=== PATIENT | female | born 1945 ===

== ENCOUNTER 2017-03-16 08:08 | Inpatient (IN) | payer MEDICARE, MEDICAID ==
[2017-03-16 08:08] VITALS: BMI 34.0
--- NOTE | 2017-03-16 08:45 | ED PDOC ---
HPI: Chest Pain Time Seen by Provider: 03/16/17 08:20 Chief Complaint (Nursing): Chest Pain Chief Complaint (Provider): Chest pain History Per: Patient History/Exam Limitations: no limitations Onset/Duration Of Symptoms: Days (5) Current Symptoms Are (Timing): Still Present Severity: Moderate Quality: "Pain" Additional History Per: Patient Additional Complaint(s): The pt is a 71yo female, PMHx of hypothyroidsm, HTN, high cholesterol, presents to ED for evaluation of left sided chest pain for the past 5 days. She reports the pain has been constant, and associated with shortness of breath - pt states she gets short of breath after walking one block. She denies any nausea, vomiting or cough. Pt offers no additional medical complaints. Past Medical History Reviewed: Historical Data, Nursing Documentation, Vital Signs Vital Signs: Last Vital Signs Temp 98.3 F 03/17/17 19:38 Pulse 68 03/17/17 19:38 Resp 20 03/17/17 19:38 BP 121/79 03/17/17 19:38 Pulse Ox 95 03/17/17 19:38 - Medical History PMH: Arthritis, HTN, Hypothyroidism, Rheumatoid Arthritis Denies: Chronic Kidney Disease - Surgical History Surgical History: Endoscopy - Family History Family History: States: Unknown Family Hx - Home Medications Home Medications: Ambulatory Orders Medication Instructions Recorded Carvedilol [Coreg] 12.5 mg PO Q12H 03/16/17 Etanercept [Enbrel] 50 mg SC QWK 03/16/17 Levothyroxine [Synthroid] 50 mcg PO DAILY 03/16/17 Valsartan/Hydrochlorothiazide 1 tab PO DAILY 03/16/17 [Valsartan-Hctz 160-12.5 mg Tab] - Allergies Allergies/Adverse Reactions: Allergies Allergy/AdvReac Type Severity Reaction Status Date / Time No Known Allergies Allergy Verified 03/16/17 08:35 Review of Systems ROS Statement: Except As Marked, All Systems Reviewed And Found Negative Cardiovascular: Positive for: Chest Pain Respiratory: Positive for: Shortness of Breath. Negative for: Cough Gastrointestinal: Negative for: Nausea Physical Exam - Reviewed Nursing Documentation Reviewed: Yes Vital Signs Reviewed: Yes - Physical Exam Appears: Positive for: Well, Non-toxic, No Acute Distress Head Exam: Positive for: ATRAUMATIC, NORMAL INSPECTION, NORMOCEPHALIC Skin: Positive for: Normal Color, Warm, DRY Eye Exam: Positive for: Normal appearance Neck: Positive for: Normal, Supple Cardiovascular/Chest: Positive for: Regular Rate, Rhythm. Negative for: Murmur Respiratory: Positive for: Normal Breath Sounds. Negative for: Respiratory Distress Gastrointestinal/Abdominal: Positive for: Normal Exam, Soft. Negative for: Tenderness Extremity: Positive for: Normal ROM. Negative for: Deformity, Swelling Neurologic/Psych: Positive for: Alert, Oriented - Laboratory Results Result Diagrams: 03/17/17 05:20 03/17/17 05:20 - ECG O2 Sat by Pulse Oximetry: 96 (RA) Pulse Ox Interpretation: Normal Medical Decision Making Medical Decision Making: Time: 30 Impression: Chest pain, ACS Plan: -- EKG -- Bloodwork -- Urinalysis -- CXR -- Reassess Time: 1000 Pt to be admitted under Dr. Mar, covering for Dr. Barth. Dr. Mar requesting cardio consult with Dr. Russo. Scribe Attestation: Documented by Rebeca Garcia acting as a scribe for Adriana Luis MD. Provider Attestation: All medical record entries made by the Scribe were at my direction and personally dictated by me. I have reviewed the chart and agree that the record accurately reflects my personal performance of the history, physical exam, medical decision making, and the department course for this patient. I have also personally directed, reviewed, and agree with the discharge instructions and disposition. Disposition - Clinical Impression Clinical Impression: Chest pain - Patient ED Disposition Is Patient to be Admitted: Yes - Disposition Disposition Time: 09:59 Condition: STABLE - Pt Status Changed To: Hospital Disposition Of: Inpatient - Admit Certification Admit to Inpatient:: After my assessment, the patient will require hospitalization for at least two midnights. This is because of the severity of symptoms shown, intensity of services needed, and/or the medical risk in this patient being treated as an outpatient. - POA Present On Arrival: None
[2017-03-16 08:55] LABS: EOS # 1.1 K/uL (0.0-0.7); HEMATOCRIT 38.5 % (34.0-47.0); LYMPH # 1.1 K/uL (1.0-4.3); MEAN CELL VOLUME 83.6 fl (81.0-99.0); MEAN CORPUSCULAR HEMOGLOBIN 27.8 pg (27.0-31.0); MEAN CORPUSCULAR HGB CONC 33.3 g/dL (33.0-37.0); MEAN PLATELET VOLUME 11.2 fl (7.2-11.7); MONO # 2.7 K/uL (0.0-0.8); NEUT # 5.9 K/uL (1.8-7.0); NRBC % 0.1 % (0.0-0.0); PLATELET COUNT 191 K/uL (130-400); RED CELL DISTRIBUTION WIDTH 14.6 % (11.5-14.5); WHITE BLOOD COUNT 10.7 K/uL (4.8-10.8)
[2017-03-16 09:01] LABS: RBC URINE 4 /hpf (0-3); RENAL EPITHELIAL < 1 /hpf (0-3); TRANSITIONAL EPITHIAL 3 /hpf (0-3); URINE BACTERIA MOD (<OCC); URINE BILIRUBIN NEGATIVE (NEGATIVE); URINE BLOOD NEGATIVE (NEGATIVE); URINE COLOR AMBER (YELLOW); URINE GLUCOSE (UA) NEG (Normal); URINE KETONE NEGATIVE (NEGATIVE); URINE LEUKOCYTE ESTERASE LARGE Leu/uL (Negative); URINE PROTEIN 30 mg/dL (NEGATIVE); URINE UROBILINOGEN 0.2-1.0 mg/dL (0.2-1.0); WBC URINE 9 /hpf (0-5)
[2017-03-16 09:13] LABS: PARTIAL THROMBOPLASTIN TIME 31.5 Seconds (25.6-37.1)
[2017-03-16 09:14] LABS: ALB/GLOB RATIO 1.1 (1.0-2.1); ALKALINE PHOSPHATASE 100 U/L (38-126); ALT/SGPT 36 U/L (9-52); AST/SGOT 47 U/L (14-36); BILIRUBIN,TOTAL 0.8 mg/dl (0.2-1.3); BLOOD UREA NITROGEN 18 mg/dl (7-17); CALCIUM 8.8 mg/dL (8.4-10.2); CARBON DIOXIDE 28 mmol/L (22-30); CHLORIDE 102 mmol/L (98-107); GFR AFRICAN-AMERICAN > 60; GLUCOSE,RANDOM 98 mg/dL (65-105); SODIUM 141 mmol/l (132-148); TOTAL PROTEIN 8.3 G/DL (6.3-8.2)
[2017-03-16 09:41] LABS: THYROID STIMULATING HORMONE 1.06 mIU/ML (0.46-4.68)
[2017-03-16 11:41] LABS: EOSINOPHIL 1 % (0-7); NEUTROPHIL 66 % (42-75); TOTAL CELLS COUNTED 100
--- NOTE | 2017-03-16 13:07 | RAD ---
HISTORY: CP COMPARISON: Comparison made with prior chest radiograph 09/13/2013 FINDINGS: LUNGS: Poor inspiration with low lung volumes, crowded bronchovascular markings and mild bibasilar atelectasis. PLEURA: No significant pleural effusion identified, no pneumothorax apparent. CARDIOVASCULAR: Cardiomegaly. OSSEOUS STRUCTURES: No degenerative changes both shoulder girdles. Mild multilevel degenerative spondylosis. There also appears to be a slight levoscoliosis centered in the lower thoracic region. VISUALIZED UPPER ABDOMEN: Normal. OTHER FINDINGS: None. IMPRESSION: Poor inspiration with low lung volumes, crowded bronchovascular markings and mild bibasilar atelectasis.
--- NOTE | 2017-03-16 13:45 | CP.PCM.HP ---
<Tess Russo - Last Filed: 03/16/17 16:07> History of Present Illness - History of Present Illness History of Present Illness: Patient seen and examined at bedside with attending. 71F p/w 5 days of pressure-like, intermittent, radiating (back) LEFT chest pain that worsens with lying on her LEFT side at night and on deep inspiration and improves with sitting up. She reports subjective fever, suprapubic discomfort, chills, decreased appetite, dry cough. However, she denies dysuria but has been having urinary frequency and states she's had recurrent UTIs. She denies reflux symptoms, hospitalizations/antibiotics within the past 3 months. PMD: Dr Barth PMH: Hypothyroid, HTN, Rheumatoid Arthritis, Gastritis PSH: b/l Blepharoplasty Smoke/Alcohol: denies/denies ALL: NKDA MORTEZA: See Med Rec Present on Admission - Present on Admission Any Indicators Present on Admission: No Review of Systems - Review of Systems All systems: reviewed and no additional remarkable complaints except - Constitutional Constitutional: Chills, Fever (Subjective). absent: Increased Appetite - Respiratory Respiratory: Cough (Dry) - Gastrointestinal Gastrointestinal: Abdominal Pain (LEFT diaphragmatic radiating into back) - Genitourinary Genitourinary: Voiding Freq/Small Amts, Freq UTI. absent: Dysuria Past Patient History - Infectious Disease Hx of Infectious Diseases: None - Past Medical History & Family History Past Medical History?: Yes - Past Social History Smoking Status: Never Smoked - CARDIAC Hx Cardiac Disorders: Yes (HTN,HLD) Hx Hypercholesterolemia: Yes Hx Hypertension: Yes - PULMONARY Hx Respiratory Disorders: No - NEUROLOGICAL Hx Neurological Disorder: No - HEENT Hx HEENT Problems: No - RENAL Hx Chronic Kidney Disease: No - ENDOCRINE/METABOLIC Hx Endocrine Disorders: Yes (HYPOTHRYOID) Hx Hypothyroidism: Yes - HEMATOLOGICAL/ONCOLOGICAL Hx Blood Disorders: No - INTEGUMENTARY Hx Dermatological Problems: No - MUSCULOSKELETAL/RHEUMATOLOGICAL Hx Musculoskeletal Disorders: No - GASTROINTESTINAL Hx Gastrointestinal Disorders: No - GENITOURINARY/GYNECOLOGICAL Hx Genitourinary Disorders: No - PSYCHIATRIC Hx Psychophysiologic Disorder: No - SURGICAL HISTORY Hx Surgeries: Yes Other/Comment: lumbar epidural - ANESTHESIA Hx Anesthesia: Yes Hx Anesthesia Reactions: No Hx Malignant Hyperthermia: No Meds Allergies/Adverse Reactions: Allergies Allergy/AdvReac Type Severity Reaction Status Date / Time No Known Allergies Allergy Verified 03/16/17 08:35 Physical Exam - Constitutional Appears: Well, Non-toxic, No Acute Distress - Head Exam Head Exam: ATRAUMATIC, NORMAL INSPECTION - Eye Exam Eye Exam: EOMI, PERRL - ENT Exam ENT Exam: Mucous Membranes Moist, Normal Exam - Neck Exam Neck exam: Positive for: Normal Inspection. Negative for: Lymphadenopathy - Respiratory Exam Respiratory Exam: Clear to Auscultation Bilateral, NORMAL BREATHING PATTERN. absent: Rales, Wheezes - Cardiovascular Exam Cardiovascular Exam: REGULAR RHYTHM. absent: JVD - GI/Abdominal Exam GI & Abdominal Exam: Normal Bowel Sounds, Soft. absent: Tenderness - Back Exam Back exam: absent: CVA tenderness (L), CVA tenderness (R) - Neurological Exam Neurological exam: Alert, Oriented x3 - Psychiatric Exam Psychiatric exam: Normal Affect, Normal Mood - Skin Skin Exam: Normal Color, Warm Results - Vital Signs Recent Vital Signs: Last Vital Signs Temp 36.6 C 03/16/17 10:13 Pulse 80 03/16/17 12:52 Resp 18 03/16/17 12:52 BP 124/70 03/16/17 11:20 Pulse Ox 99 03/16/17 11:20 - Labs Result Diagrams: 03/16/17 08:41 03/16/17 08:41 Assessment & Plan (1) Chest pain Assessment and Plan: Rule out ACS vs. pneumonia vs. MSK vs. reflux. Initial Troponin negative and EKG w/o acute ST-T changes - Serial Troponins - Cardiology Consult (Dr Russo) - 2-view CXR - Echocardiogram - HH Diet - Protonix Status: Acute (2) UTI (urinary tract infection) Assessment and Plan: Acute on chronic UTI and given distribution of LEFT sided pain cannot rule out the possibility of mild pyelonephritis. One dose of Macrobid in ED, and urinalysis equivocal given presence of many squamous epithelial cells. - Urine Culture - Rocephin 2g, IV, STAT - Rocephin 1g, IV, Daily Status: Acute (3) Rheumatoid arthritis Assessment and Plan: Chronic, due for Enbrel injection, however [facility] does not have on formulary. Status: Acute (4) Hypothyroid Assessment and Plan: Stable. - Resume home medication Status: Acute (5) Hypertension Assessment and Plan: Chronic, stable. - Resume home medication Status: Acute (6) Gastritis Assessment and Plan: Patient not currently on medication and asymptomatic. Given possiblity of contributing to "chest pain". - Protonix 40mg, PO, Daily Status: Acute (7) DVT prophylaxis Assessment and Plan: Lovenox 40mg, SC, HS Status: Acute <Mar,Dixon K - Last Filed: 03/26/17 15:56> Results - Vital Signs Recent Vital Signs: Last Vital Signs Temp 98.3 F 03/17/17 19:38 Pulse 68 03/17/17 19:38 Resp 20 03/17/17 19:38 BP 121/79 03/17/17 19:38 Pulse Ox 96 03/25/17 09:28 - Labs Result Diagrams: 03/17/17 05:20 03/17/17 05:20 Assessment & Plan - Assessment and Plan (Free Text) Assessment: Patient was personally seen and examined by me in rounds with residents. Available labs and diagnostic data reviewed. Case, patient's condition and management plan discussed with residents in rounds. Agree with resident's progress note. Plan: As ordered.
--- NOTE | 2017-03-16 16:24 | RAD ---
HISTORY: Left-sided chest pain COMPARISON: Comparison chest 03/16/2017 TECHNIQUE: Chest PA and lateral FINDINGS: LUNGS: Moderate elevation right hemidiaphragm which could be due to eventration. There is also mild right basilar atelectasis. Minimal left basilar atelectasis. . PLEURA: No significant pleural effusion identified. No pneumothorax apparent. CARDIOVASCULAR: Heart appears mildly enlarged OSSEOUS STRUCTURES: Degenerative changes left shoulder girdle. Mild multilevel degenerative spondylosis of the thoracic spine. There is also minor dextroscoliosis centered in the upper thoracic region. VISUALIZED UPPER ABDOMEN: Normal. OTHER FINDINGS: None. IMPRESSION: Moderate elevation right hemidiaphragm which could be due to eventration. There is also mild right basilar atelectasis. Minimal left basilar atelectasis. .
[2017-03-16] MEDS: Pantoprazole 40 mg EC Tab PO SCH (16:52)
--- NOTE | 2017-03-16 18:35 | CP.PCM.CON ---
History of Present Illness - History of Present Illness History of Present Illness: I was asked to see patient by Dr. Mar. Patient is a 71 year old female with PMH HTN, hypercholesterolemia who presents with chest pain. The patient describes left sided chest pain which is intermittent and associated with exertion. She states symptoms occur with walking and are associated with dyspnea. The patient states symptoms are progressive. Review of Systems - Constitutional Constitutional: absent: As Per HPI, Anorexia, Chills, Daytime Sleepiness, Excessive Sweating, Fatigue, Fever, Frequent Falls, Headache, Increased Appetite , Lethargy, Malaise, Night Sweats, Snoring, Sleep Apnea, Weight Gain, Weight Loss, Weakness, Other - EENT Eyes: absent: As Per HPI, Blind Spots, Blurred Vision, Change in Vision, Decreased Night Vision, Diplopia, Discharge, Dry Eye, Exophthalmos, Floaters, Irritation, Itchy Eyes, Loss of Peripheral Vision, Pain, Photophobia, Requires Corrective Lenses, Sees Flashes, Spots in Vision, Tunnel Vision, Other Visual Disturbances, Loss of Vision, Other Ears: absent: As Per HPI, Decreased Hearing, Ear Discharge, Ear Pain, Tinnitus, Abnormal Hearing, Disequilibrium, Dizziness, Other Nose/Mouth/Throat: absent: As Per HPI, Epistaxis, Nasal Congestion, Nasal Discharge, Nasal Obstruction, Nasal Trauma, Nose Pain, Post Nasal Drip, Sinus Pain, Sinus Pressure, Bleeding Gums, Change in Voice, Dental Pain, Dry Mouth, Dysphagia, Halitosis, Hoarsness, Lip Swelling, Mouth Lesions, Mouth Pain, Odynophagia, Sore Throat, Throat Swelling, Tongue Swelling, Facial Pain, Neck Pain, Neck Mass, Other - Cardiovascular Cardiovascular: Chest Pain at Rest, Chest Pain with Activity, Dyspnea - Respiratory Respiratory: Dyspnea - Gastrointestinal Gastrointestinal: absent: As Per HPI, Abdominal Pain, Belching, Bloating, Change in Bowel Habits, Change in Stool Character, Coffee Ground Emesis, Constipation, Cramping, Diarrhea, Dyspepsia, Dysphagia, Early Satiety, Excessive Flatus, Fecal Incontinence, Heartburn, Hematemesis, Hematochezia, Loose Stools, Melena, Nausea, Odynophagia, Temesmus, Vomiting, Other - Genitourinary Genitourinary: absent: As Per HPI, Change in Urinary Stream, Difficulty Urinating, Dysuria, Flank Pain, Hematuria, Pyuria, Nocturia, Urinary Incontinence, Urinary Frequency, Urinary Hesitance, Urinary Urgency, Voiding Freq/Small Amts, Freq UTI, Hx Renal/Bladder Calculi, Hx /Renal Surgery, Bladder Distension, Other - Musculoskeletal Musculoskeletal: absent: As Per HPI, Abnormal Gait, Arthralgias, Atrophy, Back Pain, Deformity, Joint Swelling, Limited Range of Motion, Loss of Height, Muscle Cramps, Muscle Weakness, Myalgias, Neck Pain, Numbness, Radiating Pain into Limb, Stiffness, Tingling, Other - Integumentary Integumentary: absent: As Per HPI, Acne, Alopecia, Bleeding Lesions, Change in Hair, Change in Nails, Change in Pigmentation, Changing Lesions, Dry Skin, Erythema, Furuncle, Hirsutism, Lesions, New Lesions, Non-Healing Lesions, Photosensitivity, Pruritus, Rash, Skin Pain, Skin Ulcer, Sores, Striae, Swelling , Unusual Bruising, Wounds, Jaundice, Other - Neurological Neurological: absent: As Per HPI, Abnormal Gait, Abnormal Hearing, Abnormal Movements, Abnormal Speech, Behavioral Changes, Burning Sensations, Confusion, Convulsions, Disequilibrium, Dizziness, Numbness, Focal Weakness, Frequent Falls , Headaches, Lack of Coordination, Loss of Vision, Memory Loss, Paresthesias, Radicular Pain, Restless Legs, Sensory Deficit, Syncope, Tingling, Tremor, Vertigo, Weakness, Other Visual Disturbances, Other - Psychiatric Psychiatric: absent: As Per HPI, Abnormal Sleep Pattern, Anhedonia, Anxiety, Auditory Hallucinations, Behavioral Changes, Change in Appetite, Change in Libido, Confusion, Depression, Difficulty Concentrating, Hallucinations, Homicidal Ideation, Hopelessness, Irritability, Memory Loss, Mood Swings, Panic Attacks, Paranoia, Suicidal Ideation, Visual Hallucinations, Tactile Hallucinations, Other - Endocrine Endocrine: absent: As Per HPI, Change in Body Appearance, Change in Libido, Cold Intolorance, Deepening of Voice, Excessive Sweating, Fatigue, Flushing, Heat Intolorance, Increase in Ring/Shoe/Hat Size, Palpitations, Polydipsia, Polyphagia, Polyuria, Other - Hematologic/Lymphatic Hematologic: absent: As Per HPI, Easy Bleeding, Easy Bruising, Lymphadenopathy, Other Past Patient History - Infectious Disease Hx of Infectious Diseases: None - Past Medical History & Family History Past Medical History?: Yes - Past Social History Smoking Status: Never Smoked - CARDIAC Hx Cardiac Disorders: Yes (HTN,HLD) Hx Hypercholesterolemia: Yes Hx Hypertension: Yes - PULMONARY Hx Respiratory Disorders: No - NEUROLOGICAL Hx Neurological Disorder: No - HEENT Hx HEENT Problems: No - RENAL Hx Chronic Kidney Disease: No - ENDOCRINE/METABOLIC Hx Endocrine Disorders: Yes (HYPOTHRYOID) Hx Hypothyroidism: Yes - HEMATOLOGICAL/ONCOLOGICAL Hx Blood Disorders: No - INTEGUMENTARY Hx Dermatological Problems: No - MUSCULOSKELETAL/RHEUMATOLOGICAL Hx Musculoskeletal Disorders: No - GASTROINTESTINAL Hx Gastrointestinal Disorders: No - GENITOURINARY/GYNECOLOGICAL Hx Genitourinary Disorders: No - PSYCHIATRIC Hx Psychophysiologic Disorder: No - SURGICAL HISTORY Hx Surgeries: Yes Other/Comment: lumbar epidural - ANESTHESIA Hx Anesthesia: Yes Hx Anesthesia Reactions: No Hx Malignant Hyperthermia: No Meds Allergies/Adverse Reactions: Allergies Allergy/AdvReac Type Severity Reaction Status Date / Time No Known Allergies Allergy Verified 03/16/17 08:35 - Medications Medications: Current Medications Carvedilol (Coreg) 12.5 mg PO Q12H [facility] Last Admin: 03/16/17 16:49 Dose: 12.5 mg Enoxaparin Sodium (Lovenox) 40 mg SC [facility] PRN Reason: Protocol Home Med (Etanercept [Enbrel]) 50 mg SC QWK [facility] Hydrochlorothiazide (Microzide) 12.5 mg PO DAILY [facility] Ceftriaxone Sodium 1 gm/ (Sodium Chloride) 100 mls @ 100 mls/hr IVPB DAILY [facility] Levothyroxine Sodium (Synthroid) 50 mcg PO DAILY [facility] Pantoprazole Sodium (Protonix Ec Tab) 40 mg PO DAILY [facility] Last Admin: 03/16/17 16:52 Dose: 40 mg Valsartan (Diovan) 160 mg PO DAILY [facility] Physical Exam - Constitutional Appears: Non-toxic - Head Exam Head Exam: NORMAL INSPECTION - Eye Exam Eye Exam: Normal appearance - ENT Exam ENT Exam: Mucous Membranes Moist - Neck Exam Neck exam: Positive for: Full Rom - Respiratory Exam Respiratory Exam: Decreased Breath Sounds - Cardiovascular Exam Cardiovascular Exam: REGULAR RHYTHM - GI/Abdominal Exam GI & Abdominal Exam: Normal Bowel Sounds - Rectal Exam Rectal Exam: Deferred - Extremities Exam Extremities exam: Positive for: pedal edema - Back Exam Back exam: NORMAL INSPECTION - Neurological Exam Neurological exam: Alert, Oriented x3 - Psychiatric Exam Psychiatric exam: Normal Affect - Skin Skin Exam: Normal Color Results - Vital Signs Recent Vital Signs: Last Vital Signs Temp 98.4 F 03/16/17 16:19 Pulse 82 03/16/17 16:52 Resp 18 03/16/17 16:19 BP 108/69 03/16/17 16:49 Pulse Ox 94 L 03/16/17 16:19 - Labs Result Diagrams: 03/16/17 08:41 03/16/17 08:41 Labs: Laboratory Results - last 24 hr 03/16/17 03/16/17 14:00 14:30 ESR 48 H Troponin I < 0.0120 - EKG Data EKG Interpreted by: Myself Assessment & Plan (1) Chest pain Assessment and Plan: patient has risk factors for CAD. The patient will require cardiac enzymes and monitor on telemetry. I reviewed the echocardiogram. The left ventricular function is normal. The patient has risk factors for CAD. will require nuclear stress testing. Status: Acute (2) Hypertension Assessment and Plan: blood pressure will be monitored. Status: Acute
[2017-03-16] MEDS ORDERED: Enoxaparin 40 mg Syringe SC SCH (22:00)
[2017-03-17] MEDS ORDERED: Levothyroxine 50 MCG TAB PO SCH ×2 (06:00→09:00)
[2017-03-17 06:49] LABS: BASO # 0.1 K/uL (0.0-0.2); BASO % 0.7 % (0.0-2.0); EOS # 0.3 K/uL (0.0-0.7); EOS % 4.2 % (0.0-4.0); HEMATOCRIT 38.8 % (34.0-47.0); LYMPH # 2.4 K/uL (1.0-4.3); LYMPH % 31.7 % (20.0-40.0); MEAN CELL VOLUME 83.9 fl (81.0-99.0); MEAN CORPUSCULAR HEMOGLOBIN 27.5 pg (27.0-31.0); MEAN CORPUSCULAR HGB CONC 32.7 g/dL (33.0-37.0); MONO # 1.1 K/uL (0.0-0.8); MONO % 14.1 % (0.0-10.0); NEUT # 3.8 K/uL (1.8-7.0); NEUT % 49.3 % (50.0-75.0); NRBC % 0.2 % (0.0-0.0); RED CELL DISTRIBUTION WIDTH 14.5 % (11.5-14.5); WHITE BLOOD COUNT 7.6 K/uL (4.8-10.8)
[2017-03-17 07:02] LABS: ALKALINE PHOSPHATASE 77 U/L (38-126); ALT/SGPT 45 U/L (9-52); AST/SGOT 42 U/L (14-36); BILIRUBIN,TOTAL 0.5 mg/dl (0.2-1.3); BLOOD UREA NITROGEN 16 mg/dl (7-17); CALCIUM 8.8 mg/dL (8.4-10.2); CARBON DIOXIDE 30 mmol/L (22-30); CHLORIDE 102 mmol/L (98-107); CHOLESTEROL 141 mg/dL (0-199); GFR AFRICAN-AMERICAN > 60; GLUCOSE,RANDOM 94 mg/dL (65-105); POTASSIUM 4.3 MMOL/L (3.6-5.0); SODIUM 142 mmol/l (132-148); TOTAL PROTEIN 8.2 G/DL (6.3-8.2)
[2017-03-17 07:30] LABS: ALB/GLOB RATIO 1.1 (1.0-2.1); THYROID STIMULATING HORMONE 1.62 mIU/ML (0.46-4.68)
--- NOTE | 2017-03-17 08:00 | CP.PCM.DIS ---
<Tess Russo - Last Filed: 03/18/17 04:44> Provider - Provider Date of Admission: 03/16/17 09:59 Attending physician: Dixon Mar MD Time Spent in preparation of Discharge (in minutes): 45 Diagnosis - Discharge Diagnosis (1) Chest pain Status: Acute Comment: d/c after Lexiscan completed and no further evaluation indicated. Troponins negative x3, EKG wo acute ischemic changes. CXR negative for infiltrate. Most c/w MSK. (2) UTI (urinary tract infection) Status: Acute Comment: Urine culture still pending. Will plan to d/c on PO antibiotics with adjustment as necessary based on urine culture. (3) Rheumatoid arthritis Status: Acute Comment: Patient instructed to follow up with primary care doctor for further management. (4) Hypothyroid Status: Acute Comment: TSH WNL, c/w current synthroid dose. (5) Hypertension Status: Acute Comment: Controlled, c/w home medications. (6) Gastritis Status: Acute Comment: Follow up with primary care doctor Hospital Course - Lab Results Lab Results: Most Recent Lab Values WBC 7.6 K/uL (4.8-10.8) 03/17/17 05:20 RBC 4.62 Mil/uL (3.80-5.20) 03/17/17 05:20 Hgb 12.7 g/dL (12.0-16.0) 03/17/17 05:20 Hct 38.8 % (34.0-47.0) 03/17/17 05:20 MCV 83.9 fl (81.0-99.0) 03/17/17 05:20 MCH 27.5 pg (27.0-31.0) 03/17/17 05:20 MCHC 32.7 g/dL (33.0-37.0) L 03/17/17 05:20 RDW 14.5 % (11.5-14.5) 03/17/17 05:20 Plt Count 194 K/uL (130-400) 03/17/17 05:20 MPV 11.0 fl (7.2-11.7) 03/17/17 05:20 Neut % (Auto) 49.3 % (50.0-75.0) L 03/17/17 05:20 Lymph % (Auto) 31.7 % (20.0-40.0) 03/17/17 05:20 [place] % (Auto) 14.1 % (0.0-10.0) H 03/17/17 05:20 Eos % (Auto) 4.2 % (0.0-4.0) H 03/17/17 05:20 Baso % (Auto) 0.7 % (0.0-2.0) 03/17/17 05:20 Neut # 3.8 K/uL (1.8-7.0) 03/17/17 05:20 Lymph # 2.4 K/uL (1.0-4.3) 03/17/17 05:20 [place] # 1.1 K/uL (0.0-0.8) H 03/17/17 05:20 Eos # 0.3 K/uL (0.0-0.7) 03/17/17 05:20 Baso # 0.1 K/uL (0.0-0.2) 03/17/17 05:20 Neutrophils % (Manual) 66 % (42-75) 03/16/17 08:41 Band Neutrophils % 1 % (0-2) 03/16/17 08:41 Lymphocytes % (Manual) 18 % (20-50) L 03/16/17 08:41 Monocytes % (Manual) 14 % (0-10) H 03/16/17 08:41 Eosinophils % (Manual) 1 % (0-7) 03/16/17 08:41 Platelet Estimate Normal (NORMAL) 03/16/17 08:41 Anisocytosis (manual) Slight 03/16/17 08:41 ESR 48 mm/hr (0-30) H 03/16/17 14:00 PT 12.0 Seconds (9.8-13.1) 03/16/17 08:41 INR 1.1 (0.9-1.2) 03/16/17 08:41 APTT 31.5 Seconds (25.6-37.1) 03/16/17 08:41 Sodium 142 mmol/l (132-148) 03/17/17 05:20 Potassium 4.3 MMOL/L (3.6-5.0) 03/17/17 05:20 Chloride 102 mmol/L (98-107) 03/17/17 05:20 Carbon Dioxide 30 mmol/L (22-30) 03/17/17 05:20 Anion Gap 14 (10-20) 03/17/17 05:20 BUN 16 mg/dl (7-17) 03/17/17 05:20 Creatinine 0.7 mg/dL (0.7-1.2) 03/17/17 05:20 Est GFR ( Amer) > 60 03/17/17 05:20 Est GFR (Non-Af Amer) > 60 03/17/17 05:20 Random Glucose 94 mg/dL (65-105) 03/17/17 05:20 Calcium 8.8 mg/dL (8.4-10.2) 03/17/17 05:20 Total Bilirubin 0.5 mg/dl (0.2-1.3) 03/17/17 05:20 AST 42 U/L (14-36) H 03/17/17 05:20 ALT 45 U/L (9-52) 03/17/17 05:20 Alkaline Phosphatase 77 U/L (38-126) 03/17/17 05:20 Troponin I < 0.0120 ng/mL (0.00-0.120) 03/16/17 14:30 Total Protein 8.2 G/DL (6.3-8.2) 03/17/17 05:20 Albumin 4.2 g/dL (3.5-5.0) 03/17/17 05:20 Globulin 4.0 gm/dL (2.2-3.9) H 03/17/17 05:20 Albumin/Globulin Ratio 1.1 (1.0-2.1) 03/17/17 05:20 Triglycerides 130 mg/DL (0-149) 03/17/17 05:20 Cholesterol 141 mg/dL (0-199) 03/17/17 05:20 LDL Cholesterol Direct 92 mg/dL (0-129) 03/17/17 05:20 HDL Cholesterol 28 MG/DL (30-70) L 03/17/17 05:20 TSH 3rd Generation 1.62 mIU/ML (0.46-4.68) 03/17/17 05:20 Urine Color [place] (YELLOW) 03/16/17 08:41 Urine Clarity Slighty-cloudy (Clear) 03/16/17 08:41 Urine pH 5.0 (5.0-8.0) 03/16/17 08:41 Ur Specific [place] 1.021 (1.003-1.030) 03/16/17 08:41 Urine Protein 30 mg/dL (NEGATIVE) 03/16/17 08:41 Urine Glucose (UA) Neg mg/dL (Normal) 03/16/17 08:41 Urine Ketones Negative mg/dL (NEGATIVE) 03/16/17 08:41 Urine Blood Negative (NEGATIVE) 03/16/17 08:41 Urine Nitrate Negative (NEGATIVE) 03/16/17 08:41 Urine Bilirubin Negative (NEGATIVE) 03/16/17 08:41 Urine Urobilinogen 0.2-1.0 mg/dL (0.2-1.0) 03/16/17 08:41 Ur Leukocyte Esterase Large Tali/uL (Negative) 03/16/17 08:41 Urine RBC (Auto) 4 /hpf (0-3) H 03/16/17 08:41 Urine Microscopic WBC 9 /hpf (0-5) H 03/16/17 08:41 Ur Squamous Epith Cells 21 /hpf (0-5) H 03/16/17 08:41 Ur Transition Epith Cell 3 /hpf (0-3) 03/16/17 08:41 Ur Renal Epithelial Cell < 1 /hpf (0-3) 03/16/17 08:41 Urine Bacteria Mod (<OCC) H 03/16/17 08:41 Hyaline Casts 0-2 /hpf (0-2) 03/16/17 08:41 - Hospital Course Hospital Course: Patient seen and examined at the bedside with attending. 71F admitted for rule out ACS, Troponins negative x3, will f/u Lexiscan. UTI, will follow up urine culture. Underlying medical conditions controlled. IF Lexiscan requested by cardiology is without abnormality and no further testing requested patient is stable for discharge to home and close follow up with primary care doctor. Discharge Exam - Head Exam Head Exam: ATRAUMATIC, NORMAL INSPECTION - Eye Exam Eye Exam: EOMI, PERRL - ENT Exam ENT Exam: Mucous Membranes Moist - Respiratory Exam Respiratory Exam: Clear to PA & Lateral, NORMAL BREATHING PATTERN. absent: Rales, Wheezes - Cardiovascular Exam Cardiovascular Exam: REGULAR RHYTHM. absent: JVD - GI/Abdominal Exam GI & Abdominal Exam: Normal Bowel Sounds, Soft. absent: Tenderness - Extremities Exam Extremities exam: full ROM, normal capillary refill, pedal pulses present - Neurological Exam Neurological exam: Alert, Oriented x3 - Psychiatric Exam Psychiatric exam: Normal Affect, Normal Mood - Skin Skin Exam: Normal Color, Warm Discharge Plan - Follow Up Plan Condition: STABLE Disposition: HOME/ ROUTINE Patient education suggested?: Yes Instructions: Chest Pain (DC), Urinary Tract Infection in Women (DC), Chronic Hypertension (DC) Referrals: Diane Barth [Family Provider] - 1 Week <Dixon Mar - Last Filed: 03/26/17 16:00> Provider - Provider Date of Admission: 03/17/17 15:19 Attending physician: Dixon Mar MD Hospital Course - Lab Results Lab Results: Most Recent Lab Values WBC 7.6 K/uL (4.8-10.8) 03/17/17 05:20 RBC 4.62 Mil/uL (3.80-5.20) 03/17/17 05:20 Hgb 12.7 g/dL (12.0-16.0) 03/17/17 05:20 Hct 38.8 % (34.0-47.0) 03/17/17 05:20 MCV 83.9 fl (81.0-99.0) 03/17/17 05:20 MCH 27.5 pg (27.0-31.0) 03/17/17 05:20 MCHC 32.7 g/dL (33.0-37.0) L 03/17/17 05:20 RDW 14.5 % (11.5-14.5) 03/17/17 05:20 Plt Count 194 K/uL (130-400) 03/17/17 05:20 MPV 11.0 fl (7.2-11.7) 03/17/17 05:20 Neut % (Auto) 49.3 % (50.0-75.0) L 03/17/17 05:20 Lymph % (Auto) 31.7 % (20.0-40.0) 03/17/17 05:20 [place] % (Auto) 14.1 % (0.0-10.0) H 03/17/17 05:20 Eos % (Auto) 4.2 % (0.0-4.0) H 03/17/17 05:20 Baso % (Auto) 0.7 % (0.0-2.0) 03/17/17 05:20 Neut # 3.8 K/uL (1.8-7.0) 03/17/17 05:20 Lymph # 2.4 K/uL (1.0-4.3) 03/17/17 05:20 [place] # 1.1 K/uL (0.0-0.8) H 03/17/17 05:20 Eos # 0.3 K/uL (0.0-0.7) 03/17/17 05:20 Baso # 0.1 K/uL (0.0-0.2) 03/17/17 05:20 Neutrophils % (Manual) 66 % (42-75) 03/16/17 08:41 Band Neutrophils % 1 % (0-2) 03/16/17 08:41 Lymphocytes % (Manual) 18 % (20-50) L 03/16/17 08:41 Monocytes % (Manual) 14 % (0-10) H 03/16/17 08:41 Eosinophils % (Manual) 1 % (0-7) 03/16/17 08:41 Platelet Estimate Normal (NORMAL) 03/16/17 08:41 Anisocytosis (manual) Slight 03/16/17 08:41 ESR 48 mm/hr (0-30) H 03/16/17 14:00 PT 12.0 Seconds (9.8-13.1) 03/16/17 08:41 INR 1.1 (0.9-1.2) 03/16/17 08:41 APTT 31.5 Seconds (25.6-37.1) 03/16/17 08:41 Sodium 142 mmol/l (132-148) 03/17/17 05:20 Potassium 4.3 MMOL/L (3.6-5.0) 03/17/17 05:20 Chloride 102 mmol/L (98-107) 03/17/17 05:20 Carbon Dioxide 30 mmol/L (22-30) 03/17/17 05:20 Anion Gap 14 (10-20) 03/17/17 05:20 BUN 16 mg/dl (7-17) 03/17/17 05:20 Creatinine 0.7 mg/dL (0.7-1.2) 03/17/17 05:20 Est GFR ( Amer) > 60 03/17/17 05:20 Est GFR (Non-Af Amer) > 60 03/17/17 05:20 Random Glucose 94 mg/dL (65-105) 03/17/17 05:20 Calcium 8.8 mg/dL (8.4-10.2) 03/17/17 05:20 Total Bilirubin 0.5 mg/dl (0.2-1.3) 03/17/17 05:20 AST 42 U/L (14-36) H 03/17/17 05:20 ALT 45 U/L (9-52) 03/17/17 05:20 Alkaline Phosphatase 77 U/L (38-126) 03/17/17 05:20 Troponin I < 0.0120 ng/mL (0.00-0.120) 03/16/17 14:30 Total Protein 8.2 G/DL (6.3-8.2) 03/17/17 05:20 Albumin 4.2 g/dL (3.5-5.0) 03/17/17 05:20 Globulin 4.0 gm/dL (2.2-3.9) H 03/17/17 05:20 Albumin/Globulin Ratio 1.1 (1.0-2.1) 03/17/17 05:20 Triglycerides 130 mg/DL (0-149) 03/17/17 05:20 Cholesterol 141 mg/dL (0-199) 03/17/17 05:20 LDL Cholesterol Direct 92 mg/dL (0-129) 03/17/17 05:20 HDL Cholesterol 28 MG/DL (30-70) L 03/17/17 05:20 TSH 3rd Generation 1.62 mIU/ML (0.46-4.68) 03/17/17 05:20 Urine Color [place] (YELLOW) 03/16/17 08:41 Urine Clarity Slighty-cloudy (Clear) 03/16/17 08:41 Urine pH 5.0 (5.0-8.0) 03/16/17 08:41 Ur Specific [place] 1.021 (1.003-1.030) 03/16/17 08:41 Urine Protein 30 mg/dL (NEGATIVE) 03/16/17 08:41 Urine Glucose (UA) Neg mg/dL (Normal) 03/16/17 08:41 Urine Ketones Negative mg/dL (NEGATIVE) 03/16/17 08:41 Urine Blood Negative (NEGATIVE) 03/16/17 08:41 Urine Nitrate Negative (NEGATIVE) 03/16/17 08:41 Urine Bilirubin Negative (NEGATIVE) 03/16/17 08:41 Urine Urobilinogen 0.2-1.0 mg/dL (0.2-1.0) 03/16/17 08:41 Ur Leukocyte Esterase Large Tali/uL (Negative) 03/16/17 08:41 Urine RBC (Auto) 4 /hpf (0-3) H 03/16/17 08:41 Urine Microscopic WBC 9 /hpf (0-5) H 03/16/17 08:41 Ur Squamous Epith Cells 21 /hpf (0-5) H 03/16/17 08:41 Ur Transition Epith Cell 3 /hpf (0-3) 03/16/17 08:41 Ur Renal Epithelial Cell < 1 /hpf (0-3) 03/16/17 08:41 Urine Bacteria Mod (<OCC) H 03/16/17 08:41 Hyaline Casts 0-2 /hpf (0-2) 03/16/17 08:41
[2017-03-17] MEDS ORDERED: Pneumococcal 23-Valent Vaccine IM ONE (09:00)
[2017-03-17] MEDS ORDERED: Patient's Own Med (Valsartan/Hydrochlorothiazide [Valsartan-Hctz 160-12.5 Mg Tab] 1 TAB) PO SCH (09:00)
[2017-03-17] MEDS: Pantoprazole 40 mg EC Tab PO SCH (11:02)
--- NOTE | 2017-03-17 11:36 | CARD ---
APPROVED REPORT EXAM: Two-dimensional and M-mode echocardiogram with Doppler and color Doppler. Other Information Quality : GoodRhythm : NSR INDICATION Chest Pain 2D DIMENSIONS IVSd1.06 (0.7-1.1cm)LVDd4.31 (3.9-5.9cm) LVOT Diameter1.86 (1.8-2.4cm)PWd0.87 (0.7-1.1cm) IVSs1.46 (0.8-1.2cm)LVDs2.15 (2.5-4.0cm) FS (%) 50.1 %PWs1.45 (0.8-1.2cm) M-Mode DIMENSIONS Left Atrium (MM)4.94 (2.5-4.0cm)IVSd1.56 (0.7-1.1cm) Aortic Root2.94 (2.2-3.7cm)LVDd4.41 (4.0-5.6cm) Aortic Cusp Exc.1.71 (1.5-2.0cm)PWd1.24 (0.7-1.1cm) IVSs1.62 cmFS (%) 50 % LVDs2.21 (2.0-3.8cm)PWs1.76 cm Mitral Valve MV E Bmjalsev49.3cm/sMV DECEL PLMW260hbST A Pkanmubs32.2cm/s MV MVR05rpJ/A ratio0.7MVA (PHT)3.08cm2 TDI Lateral E' Peak V9.04cm/sMedial E' Peak V3.83cm/sE/Lateral E'7.2 E/Medial E'17.0 Pulmonary Valve PV Peak Mtwzrvjv14.3cm/s Tricuspid Valve TR Peak Oplqkwuu251re/sRAP IBWHPYVL14lgMvLK Peak Gr.30mmHg SIHV80zhHd LEFT VENTRICLE The left ventricle is normal size. There is normal left ventricular wall thickness. The left ventricular function is normal. The left ventricular ejection fraction is 60% There is normal LV segmental wall motion. Transmitral Doppler flow pattern is Grade I-abnormal relaxation pattern. No left ventricle thrombus noted on this study. There is no ventricular septal defect visualized. There is no left ventricular aneurysm. There is no mass noted in the left ventricle. RIGHT VENTRICLE The right ventricle is normal size. There is normal right ventricular wall thickness. The right ventricular systolic function is normal. ATRIA The left atrium size is normal. The right atrium size is normal. The interatrial septum is intact with no evidence for an atrial septal defect. AORTIC VALVE The aortic valve is normal in structure and function. No aortic regurgitation is present. There is no aortic valvular stenosis. There is no aortic valvular vegetation. MITRAL VALVE The mitral valve is normal in structure and function. There is no evidence of mitral valve prolapse. There is no mitral valve stenosis. Mitral regurgitation is trace to mild. TRICUSPID VALVE The tricuspid valve is normal in structure and function. There is no tricuspid valve regurgitation noted. There is no tricuspid valve prolapse or vegetation. There is no tricuspid valve stenosis. PULMONIC VALVE The pulmonary valve is normal in structure and function. There is no pulmonic valvular regurgitation. There is no pulmonic valvular stenosis. GREAT VESSELS The aortic root is normal in size. The ascending aorta is normal in size. The IVC is normal in size and collapses >50% with inspiration. PERICARDIAL EFFUSION The pericardium appears normal. There is no pleural effusion. <Conclusion> Normal LV Function Trace to Mild Mitral Regurgitation Impaired Diastolic Relaxation
--- NOTE | 2017-03-17 14:52 | RAD ---
HISTORY: LEFT chest pain COMPARISON: Chest x-ray performed 03/16/17 TECHNIQUE: Chest PA and lateral FINDINGS: LUNGS: Lateral view demonstrates rounded density at the level of the hilum of unclear significance. Please note that chest x-ray has limited sensitivity for the detection of pulmonary masses. PLEURA: No significant pleural effusion identified. No definite pneumothorax . CARDIOVASCULAR: Heart size appears within normal limits. Atherosclerotic calcifications of the aortic knob. OSSEOUS STRUCTURES: Mild degenerative changes. VISUALIZED UPPER ABDOMEN: Elevation of the right hemidiaphragm. OTHER FINDINGS: None. IMPRESSION: Lateral view demonstrates rounded density at the level of the hilum of unclear significance. Recommend CT of the chest with IV contrast for further evaluation.
[2017-03-17 15:44] VITALS: RESP 20; TEMP 98.3
[2017-03-17] MEDS ORDERED: Bismuth Subsalicylate 262 mg/15 ml Sus (240 ml) PO SCH (17:00)
--- NOTE | 2017-03-17 18:43 | CP.PCM.PN ---
Subjective - Date & Time of Evaluation Date of Evaluation: 03/17/17 Time of Evaluation: 18:40 - Subjective Subjective: no new complaints. stress test reviewed. Objective - Vital Signs/Intake and Output Vital Signs (last 24 hours): Temp Pulse Resp BP Pulse Ox 98.3 F 71 20 123/65 97 03/17/17 15:44 03/17/17 15:44 03/17/17 15:44 03/17/17 15:44 03/17/17 15:44 - Medications Medications: Current Medications Acetaminophen (Tylenol 325mg Tab) 650 mg PO Q6 PRN PRN Reason: Pain, moderate (4-7) Last Admin: 03/17/17 18:03 Dose: 650 mg Bismuth Subsalicylate (Pepto-Bismol) 262 mg PO Q4 [facility] Stop: 03/18/17 05:01 Last Admin: 03/17/17 18:03 Dose: 262 mg Carvedilol (Coreg) 12.5 mg PO Q12H [facility] Last Admin: 03/17/17 14:00 Dose: 12.5 mg Enoxaparin Sodium (Lovenox) 40 mg SC HS [facility] PRN Reason: Protocol Last Admin: 03/16/17 22:26 Dose: 40 mg Home Med (Etanercept [Enbrel]) 50 mg SC QWK [facility] Hydrochlorothiazide (Microzide) 12.5 mg PO DAILY [facility] Last Admin: 03/17/17 11:02 Dose: 12.5 mg Ceftriaxone Sodium 1 gm/ (Sodium Chloride) 100 mls @ 100 mls/hr IVPB DAILY [facility] Last Admin: 03/17/17 11:03 Dose: 100 mls/hr Levothyroxine Sodium (Synthroid) 50 mcg PO DAILY [facility] Last Admin: 03/17/17 11:03 Dose: 50 mcg Pantoprazole Sodium (Protonix Ec Tab) 40 mg PO DAILY [facility] Last Admin: 03/17/17 11:02 Dose: 40 mg Valsartan (Diovan) 160 mg PO DAILY [facility] Last Admin: 03/17/17 11:02 Dose: 160 mg - Labs Labs: PT 12.0 Seconds (9.8-13.1) 03/16/17 08:41 INR 1.1 (0.9-1.2) 03/16/17 08:41 APTT 31.5 Seconds (25.6-37.1) 03/16/17 08:41 - Constitutional Appears: Non-toxic - Head Exam Head Exam: NORMAL INSPECTION - Eye Exam Eye Exam: Normal appearance - ENT Exam ENT Exam: Mucous Membranes Moist - Neck Exam Neck Exam: Full ROM - Respiratory Exam Respiratory Exam: NORMAL BREATHING PATTERN - Cardiovascular Exam Cardiovascular Exam: REGULAR RHYTHM - GI/Abdominal Exam GI & Abdominal Exam: Normal Bowel Sounds - Rectal Exam Rectal Exam: Deferred - Extremities Exam Extremities Exam: Pedal Edema - Back Exam Back Exam: NORMAL INSPECTION - Neurological Exam Neurological Exam: Alert - Psychiatric Exam Psychiatric exam: Normal Affect - Skin Skin Exam: Normal Color Assessment and Plan (1) Chest pain Assessment & Plan: Nuclear imaging is normal. Patient is stable for discharge. recommend risk factor modification Status: Acute (2) Hypertension Status: Acute
[2017-03-17 19:39] VITALS: BP 121/79; PULSE 68
--- NOTE | 2017-03-18 10:29 | PQF GENQUE ---
Dr. Mar,, Pyelonephritis: ruled in or ruled out? the diagnosis is listed in the H and and then the diagnosis is dropped OR:Unable to determine OR:Other explanation of clinical findings H and P: UTI (urinary tract infection) Acute on chronic UTI and given distribution of LEFT sided pain cannot rule out the possibility of mild pyelonephritis. One dose of Macrobid in ED, and urinalysis equivocal given presence of many squamous epithelial cells. - Urine Culture - Rocephin 2g, IV, STAT - Rocephin 1g, IV, Daily Status: Acute This form is a permanent part of the medical record Clarification of your documentation is requested to better reflect the severity of illness and intensity of treatment of your patient. Indicators present [] Specify: [] [] Specify: [] [] Specify: [] [] Specify: [] Location in the medical record that reflects the above clinical findings: [] Treatment Provided: [] PHYSICIAN'S RESPONSE Based on your medical judgment of the clinical indicators outlined above please clarify the following: [] Practitioner response [] If unable to determine, please check the box, sign and date. Present On Admission (POA) Indicator: [] Present at the time of admission [] Not present at the time of admission [] Clinically Undetermined In responding to this query, please exercise your independent professional judgment. The fact that a question is asked does not imply that any particular answer is desired or expected. Thank you for your clarification on this documentation. If you have any questions please call. * Thank you, Arline Gilmore RN BSN ext. #[phone] MTDD
--- NOTE | 2017-03-18 11:57 | CARD ---
APPROVED REPORT EKG Measurement Heart [id number] DC 142P51 [id number] <Conclusion> Normal sinus rhythm Possible Left atrial enlargement Left axis deviation Septal infarct, age undetermined Abnormal ECG
--- NOTE | 2017-03-18 12:24 | CARD ---
APPROVED REPORT Protocol: MODBRUCE Test Type: Stress Nuclear Medications: Carvediolo 12.5mg, Lovenox 40mg, Etanercept 50mg, Hydrochlorothiazide 12.5mg. Levothyroxine Sod. 50 mcg, Pantoprazoel 40mg, Diovan 160mg Medical History: Hypertension, Cholesterol Target HR: 147 bpm Resting ECG: normal Resting Heart Rate: 69 bpm Resting Blood Pressure: 125/80mmHg submaximum (85%): 125 bpm TEST SUMMARY [id number]/80.0. [id number]/80.0. PRETESTHYPERV.00:[id number]/80.0. PRETESTWARM-UP01:[id number]/80.0. EXERCISESTAGE [id number]:[id number]/80.0. EXERCISESTAGE :[id number]/84.0. [id number]/80.0. POST EXERCISE Reason for Termination: Fatigue Target HR: No Max HR: 99 bpm 69% of Maximum Predicted HR: 147 bpm Exercise duration: 05:03 min:sec, 2 Stage Exercise capacity: 3.4METs Max Blood Pressure: 180/84mmHg Blood Pressure response to exercise: normal resting BP - appropriate response Heart Rate response to exercise: appropriate Chest Pain: No, none Angina index: 0 Arrhythmia: No, none ST Change: No, none Deviation: 0 mm Stress EKG Interpretation The patient exercised for 5:03 on the Modified [place] Protocol achieving a max HR of 99 bpm 69% of the MPHR No chest pain reported Test stopped due to fatigue Mild to Moderate Reduction in functional aerobic capacity Normal HR and BP response No arrythmias Baseline EKG NSR/ Normal upsloping st segments with exercise EXAM: Myocardial Perfusion REST/STRESS Image QualityGood Imaging Protocol The imaging protocol used to acquire images was Rest Tc-99m/stress Tc-99m 1 day Rest Spect myocardial perfusion imaging was performed in supine position 30 minutes following the injection of 10 mCi of Tc-99 Myoview. Time of rest injection: 7:43 Time of rest imagin:20 At peak stress, the patient was injected intravenously with 30mCi of Tc-99 tetrofosmin after an infusion time of minutes and seconds. Time of stress injection: 10:30 Time of stress imagin:20 Gated Stress Spect was performed 45 minutes after intravenous Tc-99 Myoview injection. The images were gated to evaluate regional wall motion and calculate ventricular ejection fraction. NUCLEAR IMAGE INTERPRETATION The rest and stress images show normal perfusion, normal contraction and thickening. LV Perfusion 1 The rest and stress images show normal perfusion. CONCLUSION 1. No exercise induced myocardial ischemia. Normal perfusion both @ rest and with stress 2. Normal Gated LVEF 66% with normal perfusion, contraction and thickening 3. Normal Exercise EKG response @ 69% MPHR
[2017-03-25 09:29] VITALS: O2SAT 96
== END 2017-03-17 20:30 | disposition home or self-care (01) | DRG 690 ==
LOC: H.ER 08:08 → H.ERHOLD 09:59 → H.TEL 12:13 → OBSVTOIN 03-17 15:19
PROVIDERS: ADMIT Internal Medicine; ATTEND Internal Medicine
DX: N10 Acute pyelonephritis (principal); M06.9 Rheumatoid arthritis, unspecified; I10 Essential (primary) hypertension; R07.89 Other chest pain; N39.0 Urinary tract infection, site not specified; E03.9 Hypothyroidism, unspecified; E78.00 Pure hypercholesterolemia, unspecified; E78.5 Hyperlipidemia, unspecified; K29.70 Gastritis, unspecified, without bleeding; M19.90 Unspecified osteoarthritis, unspecified site

== ENCOUNTER 2018-06-30 07:28 | Emergency (ER) | payer MEDICARE, MEDICAID ==
[2018-06-30 07:33] VITALS: BMI 34.2
[2018-06-30 07:34] VITALS: O2SAT 100
[2018-06-30] MEDS ORDERED: Sodium Chloride 0.9% 1,000 ML IV STA (08:20)
[2018-06-30] MEDS ORDERED: Morphine 4 MG/ML VIAL IVP ONE (08:20)
[2018-06-30] MEDS ORDERED: Morphine 4 MG/ML VIAL ONE (08:25)
[2018-06-30 08:38] LABS: BASO # 0.1 K/uL (0.0-0.2); BASO % 0.8 % (0.0-2.0); EOS # 0.2 K/uL (0.0-0.7); EOS % 2.4 % (0.0-4.0); HEMOGLOBIN 13.4 g/dL (12.0-16.0); LYMPH # 2.4 K/uL (1.0-4.3); LYMPH % 24.5 % (20.0-40.0); MEAN CELL VOLUME 85.3 fl (81.0-99.0); MEAN CORPUSCULAR HEMOGLOBIN 27.9 pg (27.0-31.0); MEAN CORPUSCULAR HGB CONC 32.8 g/dL (33.0-37.0); MEAN PLATELET VOLUME 10.8 fl (7.2-11.7); MONO # 0.7 K/uL (0.0-0.8); MONO % 6.8 % (0.0-10.0); NEUT # 6.4 K/uL (1.8-7.0); NEUT % 65.5 % (50.0-75.0); RBC 4.79 Mil/uL (3.80-5.20); RED CELL DISTRIBUTION WIDTH 14.4 % (11.5-14.5); WHITE BLOOD COUNT 9.8 K/uL (4.8-10.8)
[2018-06-30 08:47] LABS: ALB/GLOB RATIO 1.1 (1.0-2.1); ALBUMIN 4.4 g/dL (3.5-5.0); ALT/SGPT 34 U/L (9-52); AST/SGOT 36 U/L (14-36); BLOOD UREA NITROGEN 26 mg/dl (7-17); CALCIUM 8.9 mg/dL (8.4-10.2); GFR NON-AFRICAN AMERICAN > 60; LIPASE 92 U/L (23-300)
--- NOTE | 2018-06-30 09:11 | ED PDOC ---
HPI: Abdomen Time Seen by Provider: 06/30/18 08:08 Chief Complaint (Nursing): Abdominal Pain Chief Complaint (Provider): Abdominal Pain History Per: Patient History/Exam Limitations: no limitations Onset/Duration Of Symptoms: Days (x 1) Current Symptoms Are (Timing): Still Present Location Of Pain/Discomfort: Diffuse, Epigastric Quality Of Discomfort: "Pain" Additional Complaint(s): 72 year old with a history of HTN, gastritis and arthritis presents to the ED with diffuse, mostly epigastric abdominal pain since last night associated with mild radiation to chest. Patient reports pain is very strong. Denies vomiting, diarrhea, fever and back pain. PMD: Eda [place] Past Medical History Reviewed: Historical Data, Nursing Documentation, Vital Signs Vital Signs: Last Vital Signs Temp 97.6 F 06/30/18 07:33 Pulse 67 06/30/18 07:33 Resp 17 06/30/18 07:33 BP 178/79 H 06/30/18 07:33 Pulse Ox 100 06/30/18 07:33 - Medical History PMH: Arthritis, HTN, Hypercholesterolemia, Hypothyroidism, Rheumatoid Arthritis Denies: Chronic Kidney Disease - Surgical History Surgical History: Endoscopy - Family History Family History: States: Unknown Family Hx - Home Medications Home Medications: Ambulatory Orders Medication Instructions Recorded RX: Carvedilol [Coreg] 12.5 mg PO Q12H 03/16/17 RX: Etanercept [Enbrel] 50 mg SC QWK 03/16/17 RX: Levothyroxine [Synthroid] 50 mcg PO DAILY 03/16/17 RX: Valsartan/Hydrochlorothiazide 1 tab PO DAILY 03/16/17 [Valsartan-Hctz 160-12.5 mg Tab] Esomeprazole Magnesium [Nexium] 40 mg PO DAILY #30 capsule. 06/30/18 Sulfamethoxazole/Trimethoprim 1 tab PO BID #20 tab 06/30/18 [Bactrim DS 800 mg-160 mg] - Allergies Allergies/Adverse Reactions: Allergies Allergy/AdvReac Type Severity Reaction Status Date / Time No Known Allergies Allergy Verified 03/16/17 08:35 Review of Systems ROS Statement: Except As Marked, All Systems Reviewed And Found Negative Constitutional: Negative for: Fever Cardiovascular: Positive for: Chest Pain (abdominal pain radiating into chest ) Gastrointestinal: Positive for: Abdominal Pain (mostly epigastric ). Negative for: Nausea, Vomiting, Diarrhea Physical Exam - Reviewed Nursing Documentation Reviewed: Yes Vital Signs Reviewed: Yes - Physical Exam Appears: Positive for: Uncomfortable Head Exam: Positive for: ATRAUMATIC, NORMAL INSPECTION, NORMOCEPHALIC Skin: Positive for: Normal Color, Warm, Diaphoresis Eye Exam: Positive for: EOMI, Normal appearance, PERRL Neck: Positive for: Normal, Painless ROM, Supple Cardiovascular/Chest: Positive for: Regular Rate, Rhythm. Negative for: Murmur Respiratory: Positive for: Normal Breath Sounds. Negative for: Wheezing, Respi ratory Distress Gastrointestinal/Abdominal: Positive for: Normal Exam, Tenderness (diffuse tenderness) Extremity: Positive for: Normal ROM (x 4). Negative for: Deformity Neurologic/Psych: Positive for: Alert, Oriented (x 3). Negative for: Motor/Sensory Deficits - Laboratory Results Result Diagrams: 06/30/18 08:32 06/30/18 08:32 - ECG O2 Sat by Pulse Oximetry: 100 (RA) Pulse Ox Interpretation: Normal Medical Decision Making Medical Decision Makin:15 Impression: abdominal pain Differentials include but are not limited to: gastritis, pancreatitis, cholecystitis, atypical ACS; rule out AAA, dissection Initial Plan: --CT Abd & pelvis --EKG --CMP --Lipase --Troponin --CBC --urine dip --Morphine 4 mg IVP --NS IV 10:23 CT Abdomen & Pelvis FINDINGS: LOWER THORAX: Unremarkable. LIVER: Unremarkable. No gross lesion or ductal dilatation. GALLBLADDER AND BILE DUCTS: Unremarkable. PANCREAS: Unremarkable. No gross lesion or ductal dilatation. SPLEEN: Nonspecific 1.4 cm rounded low-attenuation lesion in the spleen. This was seen on prior examination of 09/17/2016 but measured only 9 mm at that time. Differential diagnosis includes hemangioma, lymphangioma, hamartoma or splenic cyst. ADRENALS: Unremarkable. No mass. KIDNEYS AND URETERS: 12 mm left lower pole renal cortical cyst, unchanged. No renal calculus. No hydronephrosis. VASCULATURE: Unremarkable. No aortic aneurysm. BOWEL: Sigmoid diverticulosis without evidence of diverticulitis. No bowel obstru ction. No other abnormal bowel loops. APPENDIX: Not identified. No secondary findings. PERITONEUM: Unremarkable. No free fluid. No free air. LYMPH NODES: Shotty subcentimeter nodes are seen medial to the cecum and ascending colon, nonspecific. This may be seen in mesenteric adenitis. However, it is unchanged when compared to examination of 09/17/2016. This may be a chronic finding or m ay reflect recurrent acute mesenteric adenitis. BLADDER: Unremarkable. REPRODUCTIVE: Normal uterus BONES: No acute fracture OTHER FINDINGS: None. IMPRESSION: Sigmoid diverticulosis without evidence of diverticulitis. Subcentimeter lymph nodes medial to the cecum and ascending colon of uncertain significance. This may be seen in association with mesenteric adenitis. Slight increase in size of small rounded low-attenuation splenic mass. Nonspecific. See above. Stable small left lower pole renal cortical cyst. 13:30 --Patient, on reevaluation, is significantly improved and reports pain resolved. Labs reveal she has a UTI and she will be discharged with prescriptions to treat it. Otherwise, she requires no further care at this time and is stable for discharge. ----- Scribe Attestation: Documented by Maribel Alvarez, acting as a scribe for Mustapha Lundberg MD Provider Scribe Attestation: All medical record entries made by the Scribe were at my direction and personally dictated by me. I have reviewed the chart and agree that the record accurately reflects my personal performance of the history, physical exam, medical decision making, and the department course for this patient. I have also personally directed, reviewed, and agree with the discharge instructions and disposition. Disposition - Clinical Impression Clinical Impression: UTI (urinary tract infection), Abdominal pain in female, Diverticulosis - Patient ED Disposition Is Patient to be Admitted: No Doctor Will See Patient In The: Office Counseled Patient/Family Regarding: Studies Performed, Diagnosis, Need For Followup - Disposition Referrals: [facility] [Outside] Disposition: Routine/Home Disposition Time: 13:30 Condition: GOOD Additional Instructions: ELSA MATTHEWS, thank you for letting us take care of you today. Your provider was Mustapha Gillette MD and you were treated for ABD PAIN. The emergency medical care you received today was directed at your acute symptoms. If you were prescribed any medication, please fill it and take as directed. It may take several days for your symptoms to resolve. Return to the Emergency Department if your symptoms worsen, do not improve, or if you have any other problems. Please contact your doctor or call one of the physicians/clinics you have been referred to that are listed on the Patient Visit Information form that is included in your discharge packet. Bring any paperwork you were given at discharge with you along with any medications you are taking to your follow up visit. Our treatment cannot replace ongoing medical care by a primary care provider outside of the emergency department. Thank you for allowing the [facility] team to be part of your care today. If you had an X-Ray or CT scan: A Radiologist will review the ED reading if any change in treatment is needed we will contact you. If you had a blood, urine, or wound culture: It will take several days for the results, if any change in treatment is needed we will contact you. If you had an STI test: It will take 48 hours for the results. Please call after 1 week if you have not heard back. Prescriptions: Esomeprazole Magnesium [Nexium] 40 mg PO DAILY #30 capsule. Sulfamethoxazole/Trimethoprim [Bactrim DS 800 mg-160 mg] 1 tab PO BID #20 tab Instructions: Urinary Tract Infections in Adults, Acute Abdomen (Belly Pain) Print Language: GHANAIAN
[2018-06-30] MEDS ORDERED: Iohexol 300 100 ML IJ ONE (09:26)
[2018-06-30] MEDS ORDERED: Sodium Chloride 0.9% 50 ML IV ONE (09:27)
--- NOTE | 2018-06-30 10:27 | CT ---
Date of service: 06/30/2018 PROCEDURE: CT Abdomen and Pelvis with contrast HISTORY: abdominal pain COMPARISON: 09/17/2016 TECHNIQUE: Contrast dose: 100 mL Omnipaque 300 Radiation dose: Total exam DLP = 703.77 mGy-cm. This CT exam was performed using one or more of the following dose reduction techniques: Automated exposure control, adjustment of the mA and/or kV according to patient size, and/or use of iterative reconstruction technique. FINDINGS: LOWER THORAX: Unremarkable. LIVER: Unremarkable. No gross lesion or ductal dilatation. GALLBLADDER AND BILE DUCTS: Unremarkable. PANCREAS: Unremarkable. No gross lesion or ductal dilatation. SPLEEN: Nonspecific 1.4 cm rounded low-attenuation lesion in the spleen. This was seen on prior examination of 09/17/2016 but measured only 9 mm at that time. Differential diagnosis includes hemangioma, lymphangioma, hamartoma or splenic cyst. ADRENALS: Unremarkable. No mass. KIDNEYS AND URETERS: 12 mm left lower pole renal cortical cyst, unchanged. No renal calculus. No hydronephrosis. VASCULATURE: Unremarkable. No aortic aneurysm. BOWEL: Sigmoid diverticulosis without evidence of diverticulitis. No bowel obstruction. No other abnormal bowel loops. APPENDIX: Not identified. No secondary findings. PERITONEUM: Unremarkable. No free fluid. No free air. LYMPH NODES: Shotty subcentimeter nodes are seen medial to the cecum and ascending colon, nonspecific. This may be seen in mesenteric adenitis. However, it is unchanged when compared to examination of 09/17/2016. This may be a chronic finding or may reflect recurrent acute mesenteric adenitis. BLADDER: Unremarkable. REPRODUCTIVE: Normal uterus BONES: No acute fracture OTHER FINDINGS: None. IMPRESSION: Sigmoid diverticulosis without evidence of diverticulitis. Subcentimeter lymph nodes medial to the cecum and ascending colon of uncertain significance. This may be seen in association with mesenteric adenitis. Slight increase in size of small rounded low-attenuation splenic mass. Nonspecific. See above. Stable small left lower pole renal cortical cyst.
[2018-06-30 13:30] VITALS: PULSE 75; TEMP 97.9
[2018-06-30 14:03] VITALS: BP 135/89; RESP 20
--- NOTE | 2018-06-30 18:34 | CARD ---
APPROVED REPORT Date of service: 06/30/2018 EKG Measurement Heart [id number] <Conclusion> Normal sinus rhythm with sinus arrhythmia Left axis deviation Septal infarct, age undetermined Abnormal ECG
== END 2018-06-30 14:03 | disposition home or self-care (01) ==
LOC: H.ER 07:28
DX: N39.0 Urinary tract infection, site not specified (principal); R10.13 Epigastric pain; K57.30 Diverticulosis of large intestine without perforation or abscess without bleeding; E03.9 Hypothyroidism, unspecified; E78.00 Pure hypercholesterolemia, unspecified; I10 Essential (primary) hypertension
CPT/HCPCS: 74177; 80053; 82948; 83690; 84484; 85025; 93005; 96374; 99284; J2270; J7030; Q9967